=== PATIENT | female | born 1935 | race Caucasian/White ===

== ENCOUNTER 2017-12-03 11:36 | Outpatient (CLI) | payer MEDICARE | END 2017-12-03 23:59 | disposition home or self-care (01) | LOC: WOU 11:36 | PROVIDERS: ATTEND Surgery | DX: S51.812A Laceration without foreign body of left forearm, initial encounter (principal); W22.8XXA Striking against or struck by other objects, initial encounter; Y92.89 Other specified places as the place of occurrence of the external cause; E03.9 Hypothyroidism, unspecified; K21.9 Gastro-esophageal reflux disease without esophagitis; Z79.899 Other long term (current) drug therapy; Z86.718 Personal history of other venous thrombosis and embolism; E78.5 Hyperlipidemia, unspecified; Z85.3 Personal history of malignant neoplasm of breast; Z88.0 Allergy status to penicillin | CPT/HCPCS: 11042; A6402 ==

== ENCOUNTER 2017-12-10 13:20 | Outpatient (CLI) | payer MEDICARE | END 2017-12-10 23:59 | disposition home or self-care (01) | LOC: WOU 13:20 | PROVIDERS: ATTEND Surgery | DX: S51.812A Laceration without foreign body of left forearm, initial encounter (principal); W22.8XXA Striking against or struck by other objects, initial encounter; Y92.89 Other specified places as the place of occurrence of the external cause; Z91.81 History of falling; E03.9 Hypothyroidism, unspecified; K21.9 Gastro-esophageal reflux disease without esophagitis | CPT/HCPCS: 11042; A6402 ==

== ENCOUNTER 2017-12-24 16:16 | Outpatient (CLI) | payer MEDICARE | END 2017-12-24 23:59 | disposition home or self-care (01) | LOC: WOU 16:16 | PROVIDERS: ATTEND Surgery | DX: S51.812D Laceration without foreign body of left forearm, subsequent encounter (principal); W22.8XXD Striking against or struck by other objects, subsequent encounter; E03.9 Hypothyroidism, unspecified; Z91.81 History of falling; K21.9 Gastro-esophageal reflux disease without esophagitis; Z79.82 Long term (current) use of aspirin; Z79.899 Other long term (current) drug therapy | CPT/HCPCS: G0463; Z7610 ==

== ENCOUNTER 2017-12-25 12:42 | Outpatient (CLI) | payer MEDICARE | END 2017-12-25 23:59 | disposition home or self-care (01) | LOC: RAD 12:42 | PROVIDERS: ATTEND Surgery | DX: M19.042 Primary osteoarthritis, left hand (principal) | CPT/HCPCS: 73120-TC ==

== ENCOUNTER → 2017-12-31 | Outpatient (CLI) | payer MEDICARE | END | disposition home or self-care (01) | LOC: WOU 12:44 | PROVIDERS: ATTEND Surgery | DX: S51.812D Laceration without foreign body of left forearm, subsequent encounter (principal); W22.8XXD Striking against or struck by other objects, subsequent encounter; M19.042 Primary osteoarthritis, left hand; E03.9 Hypothyroidism, unspecified; K21.9 Gastro-esophageal reflux disease without esophagitis; Z91.81 History of falling | CPT/HCPCS: G0463; Z7610 ==